=== PATIENT | male | born 1960 | race African-American/Black ===

== ENCOUNTER 2022-12-20 05:55 | Emergency (ER) | payer OTHER ==
[2022-12-20 05:59] VITALS: BP 160/92; PULSE 85; RESP 17; TEMP 97.6; BMI 35.2
[2022-12-20] MEDS ORDERED: DIPHTH,PERTUSS(ACELL),TET 0.5 ML DISP.SYRIN IM ONE ×2 (07:08)
[2022-12-20] MEDS ORDERED: ALBUTEROL SO4 2.5/IPRATROPIUM 0.5 INH SOL 3 ML VIAL.NEB. NEB ONE ×2 (07:36→07:42)
== END 2022-12-20 09:53 ==
LOC: JER 05:55
PROC: 3E0F7GC Introduction of Other Therapeutic Substance into Respiratory Tract, Via Natural or Artificial Opening (ICD-10-PCS; principal; 2022-12-20)
PROC: 3E0234Z Introduction of Serum, Toxoid and Vaccine into Muscle, Percutaneous Approach (ICD-10-PCS; 2022-12-20)
PROC: 0HQGXZZ Repair Left Hand Skin, External Approach (ICD-10-PCS; 2022-12-20)
DX: S61.215A Laceration without foreign body of left ring finger without damage to nail, initial encounter (principal); T59.811A Toxic effect of smoke, accidental (unintentional), initial encounter; X99.1XXA Assault by knife, initial encounter; Y35.891A Legal intervention involving other specified means, law enforcement official injured, initial encounter
CPT/HCPCS: 12001-25; 90471; 90715; 94640; 99284-25